=== PATIENT | male | born 1995 | race Caucasian/White ===

== ENCOUNTER → 2016-08-24 | Outpatient (CLI) | payer OTHER ==
[~2016-08-24] MED LIST: ABILIFY5 MG PO; ACETAMINOPHEN W1 TA6 PO; ACIPHEX; AMOXICILLI400 MG/51 PO; CEFTIN250 M1 PO; CONCERTA18 MG PO; CUTIVATE 60 ML60 ML TP; DAYTRANA; LEXAPRO 10MG10 MG PO; LEXAPRO20 MG PO; MELATONIN1 M1 PO; PROAIR HFA0.09 MG/AC IH; UNABLE; ZITHROMAX 250M250 MG PO; [UNRECOGNIZED DRUG - REMARK]
== END ==
LOC: BHSO 13:02
DX: F31.89 Other bipolar disorder (principal)
CPT/HCPCS: 90791-AI

== ENCOUNTER → 2016-09-21 | Outpatient (CLI) | payer OTHER | LOC: BHSO 09:00 | DX: F31.9 Bipolar disorder, unspecified (principal) ==